=== PATIENT | male | born 1940 | race Caucasian/White ===

== ENCOUNTER 2016-07-29 09:52 | Outpatient (CLI) | payer MEDICARE | END 2016-07-29 09:53 | disposition home or self-care (01) | DX: E78.5 Hyperlipidemia, unspecified (principal); I10 Essential (primary) hypertension; H47.10 Unspecified papilledema; Q28.3 Other malformations of cerebral vessels ==

== ENCOUNTER 2016-07-29 10:48 | Outpatient (CLI) | payer MEDICARE | END 2016-07-29 10:49 | disposition home or self-care (01) | DX: G47.33 Obstructive sleep apnea (adult) (pediatric) (principal); E78.5 Hyperlipidemia, unspecified; Q28.3 Other malformations of cerebral vessels; H47.10 Unspecified papilledema; I10 Essential (primary) hypertension | CPT/HCPCS: 36415; 80053; 85025; 99214; G0463 ==

== ENCOUNTER 2017-05-16 08:50 | Outpatient (CLI) | payer MEDICARE ==
[2017-05-16 13:54] LABS: BASOPHILS % (AUTO) 0.6 %; EOSINOPHILS # (AUTO) 0.2 10^3/uL (0.0-0.7); EOSINOPHILS % (AUTO) 2.5 %; HGB - HEMOGLOBIN 16.6 g/dL (14.0-18.0); LYMPHOCYTES # (AUTO) 1.5 10^3/uL (1.5-3.5); LYMPHOCYTES % (AUTO) 22.9 %; MEAN CORPUSCULAR HEMOGLOBIN 29.7 pg (27.0-31.0); MEAN CORPUSCULAR HGB CONC 33.9 g/dL (32.0-36.0); MEAN CORPUSCULAR VOLUME 87.5 fL (80.0-94.0); MEAN PLATELET VOLUME 8.7 fL (7.4-11.4); MONOCYTES # (AUTO) 0.6 10^3/uL (0.0-1.0); NEUTROPHILS # (AUTO) 4.3 10^3/uL (1.5-6.6); RED CELL DISTRIBUTION WIDTH 13.4 % (12.0-15.0); UNCORRECTED WHITE BLOOD COUNT 6.7 x10^3/uL; WHITE BLOOD COUNT 6.7 x10^3/uL (4.8-10.8)
[2017-05-16 14:16] LABS: ALBUMIN/GLOBULIN RATIO 1.4 (1.0-2.2); BILIRUBIN,TOTAL 1.1 mg/dL (0.2-1.0); BUN - BLOOD UREA NITROGEN 24 mg/dL (6-20); CALCIUM 9.2 mg/dL (8.5-10.3); CARBON DIOXIDE - CO2 24 mmol/L (21-32); CHLORIDE 105 mmol/L (101-111); CHOL/HDL RATIO 2.8 (<5.0); CHOLESTEROL 181 mg/dL; CREATININE 1.4 mg/dL (0.6-1.2); GFR - MDRD 49 (>89); GLUCOSE 111 mg/dL (70-100); HDL CHOLESTEROL 65 mg/dL; LDL/HDL RATIO 1.6 (<3.6); POTASSIUM 4.4 mmol/L (3.5-5.0); SODIUM 136 mmol/L (135-145); TOTAL PROTEIN 7.1 g/dL (6.7-8.2); TRIGLYCERIDES 70 mg/dL; VLDL CHOLESTEROL 14 mg/dL
== END 2017-05-16 08:51 | disposition home or self-care (01) ==
LOC: LAB.WCP 08:50
PROVIDERS: ATTEND Family Medicine
DX: E78.5 Hyperlipidemia, unspecified (principal); I10 Essential (primary) hypertension
CPT/HCPCS: 36415; 80053; 80061; 84443; 85025

== ENCOUNTER 2017-07-08 14:05 | Outpatient (CLI) | payer MEDICARE, BC ==
[2017-07-08 19:09] LABS: CREATININE 1.3 mg/dL (0.6-1.2)
[2017-07-08 20:38] LABS: PT - PROTHROMBIN TIME 11.2 secs (9.9-12.6)
== END 2017-07-08 14:06 | disposition home or self-care (01) ==
LOC: LAB.WCP 14:05
PROVIDERS: ATTEND Family Medicine
DX: Q28.2 Arteriovenous malformation of cerebral vessels (principal); I45.10 Unspecified right bundle-branch block
CPT/HCPCS: 36415; 82565; 84520; 85610; 85730

== ENCOUNTER 2017-12-27 13:41 | Outpatient (CLI) | payer MEDICARE, BC | END 2017-12-27 13:42 | disposition home or self-care (01) | LOC: SC 13:41 | PROVIDERS: ATTEND Nurse Practitioner Family | DX: G47.33 Obstructive sleep apnea (adult) (pediatric) (principal) | CPT/HCPCS: 99214; G0463; 99212 ==

== ENCOUNTER 2018-09-15 08:00 | Outpatient (CLI) | payer MEDICARE, BC | END 2018-09-15 23:59 | disposition home or self-care (01) | LOC: LAB.WCP 08:00 | PROVIDERS: ATTEND Family Medicine | DX: I82.90 Acute embolism and thrombosis of unspecified vein (principal) | CPT/HCPCS: 81025 ==

== ENCOUNTER 2018-09-29 08:00 | Outpatient (CLI) | payer MEDICARE, BC | END 2018-09-29 23:59 | disposition home or self-care (01) | LOC: LAB.WCP 08:00 | PROVIDERS: ATTEND Family Medicine | DX: I82.90 Acute embolism and thrombosis of unspecified vein (principal); Z79.01 Long term (current) use of anticoagulants | CPT/HCPCS: 81025 ==

== ENCOUNTER 2018-10-06 08:00 | Outpatient (CLI) | payer MEDICARE, BC | END 2018-10-06 23:59 | disposition home or self-care (01) | LOC: LAB.WCP 08:00 | PROVIDERS: ATTEND Family Medicine | DX: I82.409 Acute embolism and thrombosis of unspecified deep veins of unspecified lower extremity (principal); Z79.01 Long term (current) use of anticoagulants ==

== ENCOUNTER 2018-10-17 15:45 | Outpatient (CLI) | payer MEDICARE, BC | END 2018-10-17 15:46 | disposition home or self-care (01) | LOC: SC 15:45 | PROVIDERS: ATTEND Nurse Practitioner Family | DX: G47.33 Obstructive sleep apnea (adult) (pediatric) (principal); R53.83 Other fatigue | CPT/HCPCS: 99214; G0463; 99212 ==

== ENCOUNTER 2018-11-03 15:21 | Outpatient (CLI) | payer MEDICARE, BC ==
--- NOTE | 2018-11-04 16:11 | XRAY Report ---
Reason: DEGENERATIVE JOINT DISEASE,LUMBAR SPINE Procedure Date: 11/03/2018 Accession Number: [id number] / [id number] Procedure: WCP - Lumbar Spine 2 View CPT Code: FULL RESULT: EXAM: LUMBOSACRAL SPINE RADIOGRAPHY EXAM DATE: 11/03/2018 03:16 PM. CLINICAL HISTORY: Degenerative joint disease, lumbar spine. COMPARISONS: None. TECHNIQUE: 3 views. FINDINGS: Alignment: Normal. No spondylolisthesis or scoliosis. Bones: Five [id number] lumbar vertebral bodies are present. No acute fracture appreciated. There is remote-appearing anterior wedging at the superior endplate compression of the L2 vertebral body with loss of 25% of the bone height. Disks: Mild degenerative disk space narrowing with anterior osteophyte at L2-L3. Facets: No degenerative changes. Sacroiliac Joints: Unremarkable. Soft Tissues: Normal. The visualized bowel gas pattern is normal. IMPRESSION: Remote-appearing anterior wedging compression at the superior endplate of L2 as described mild degenerative disk changes. No acute fracture appreciated. RADIA
== END 2018-11-03 15:22 | disposition home or self-care (01) ==
LOC: DI.WCP 15:21
PROVIDERS: ATTEND Family Medicine
DX: M51.36 Other intervertebral disc degeneration, lumbar region (principal); M48.56XS Collapsed vertebra, not elsewhere classified, lumbar region, sequela of fracture; I82.90 Acute embolism and thrombosis of unspecified vein; Z79.01 Long term (current) use of anticoagulants
CPT/HCPCS: 72100

== ENCOUNTER 2018-11-14 08:00 | Outpatient (CLI) | payer MEDICARE, BC | END 2018-11-14 23:59 | disposition home or self-care (01) | LOC: LAB.WCP 08:00 | PROVIDERS: ATTEND Family Medicine | DX: I82.409 Acute embolism and thrombosis of unspecified deep veins of unspecified lower extremity (principal); M47.9 Spondylosis, unspecified ==

== ENCOUNTER 2018-11-22 11:14 | Outpatient (CLI) | payer MEDICARE, BC | END 2018-11-22 11:15 | disposition home or self-care (01) | LOC: SC 11:14 | PROVIDERS: ATTEND Nurse Practitioner Family | DX: G47.33 Obstructive sleep apnea (adult) (pediatric) (principal) | CPT/HCPCS: 99214; G0463; 99212 ==

== ENCOUNTER 2018-12-12 08:00 | Outpatient (CLI) | payer MEDICARE, BC | END 2018-12-12 23:59 | disposition home or self-care (01) | LOC: LAB.WCP 08:00 | PROVIDERS: ATTEND Family Medicine | DX: I82.409 Acute embolism and thrombosis of unspecified deep veins of unspecified lower extremity (principal); Z79.01 Long term (current) use of anticoagulants ==

== ENCOUNTER 2019-01-15 10:42 | Outpatient (CLI) | payer MEDICARE, BC | END 2019-01-15 10:43 | disposition home or self-care (01) | LOC: SC 10:42 | PROVIDERS: ATTEND Nurse Practitioner Family | DX: G47.33 Obstructive sleep apnea (adult) (pediatric) (principal) | CPT/HCPCS: 99214; G0463; 99212 ==

== ENCOUNTER 2019-02-06 08:00 | Outpatient (CLI) | payer MEDICARE, BC | END 2019-02-06 23:59 | disposition home or self-care (01) | LOC: LAB.WCP 08:00 | PROVIDERS: ATTEND Family Medicine | DX: I82.90 Acute embolism and thrombosis of unspecified vein (principal); Z79.01 Long term (current) use of anticoagulants ==

== ENCOUNTER 2019-02-20 08:00 | Outpatient (CLI) | payer MEDICARE, BC | END 2019-02-20 23:59 | disposition home or self-care (01) | LOC: LAB.WCP 08:00 | PROVIDERS: ATTEND Family Medicine | DX: I82.90 Acute embolism and thrombosis of unspecified vein (principal); Z79.01 Long term (current) use of anticoagulants ==

== ENCOUNTER 2019-03-06 08:00 | Outpatient (CLI) | payer MEDICARE, BC | END 2019-03-06 23:59 | disposition home or self-care (01) | LOC: LAB.WCP 08:00 | PROVIDERS: ATTEND Family Medicine | DX: I82.409 Acute embolism and thrombosis of unspecified deep veins of unspecified lower extremity (principal); Z79.01 Long term (current) use of anticoagulants ==

== ENCOUNTER 2019-03-19 08:00 | Outpatient (CLI) | payer MEDICARE, BC | END 2019-03-19 23:59 | disposition home or self-care (01) | LOC: LAB.WCP 08:00 | PROVIDERS: ATTEND Physician Assistant Medical | DX: I82.409 Acute embolism and thrombosis of unspecified deep veins of unspecified lower extremity (principal); Z79.01 Long term (current) use of anticoagulants ==

== ENCOUNTER 2019-04-02 08:00 | Outpatient (CLI) | payer MEDICARE, BC | END 2019-04-02 23:59 | disposition home or self-care (01) | LOC: LAB.WCP 08:00 | PROVIDERS: ATTEND Physician Assistant Medical | DX: I82.409 Acute embolism and thrombosis of unspecified deep veins of unspecified lower extremity (principal); Z79.01 Long term (current) use of anticoagulants ==

== ENCOUNTER 2019-04-16 08:00 | Outpatient (CLI) | payer MEDICARE, BC | END 2019-04-16 23:59 | disposition home or self-care (01) | LOC: LAB.WCP 08:00 | PROVIDERS: ATTEND Family Medicine | DX: I82.409 Acute embolism and thrombosis of unspecified deep veins of unspecified lower extremity (principal); Z79.01 Long term (current) use of anticoagulants ==

== ENCOUNTER 2019-04-18 08:00 | Outpatient (CLI) | payer MEDICARE, BC | END 2019-04-18 23:59 | disposition home or self-care (01) | LOC: LAB.WCP 08:00 | PROVIDERS: ATTEND Family Medicine | DX: Z79.01 Long term (current) use of anticoagulants (principal); I82.90 Acute embolism and thrombosis of unspecified vein ==

== ENCOUNTER 2019-04-18 10:17 | Outpatient (CLI) | payer MEDICARE, BC ==
[2019-04-18 11:01] VITALS: BP 112/70
--- NOTE | 2019-04-18 11:01 | SLEEP CARE CONSULTATION ---
Information from patient questionnaire entered by Mahogany Velasco. I have reviewed and concur with the information entered by Mahogany Velasco. This document represents the service I personally performed and the decisions made by me, Cande Phillips, RN, MSN, CHIEF OF PLANNING. History of Present Illness Previous diagnosis: Very Severe, Obstructive Sleep Apnea-Hypopnea Syndrome AHI: 87.7 Reason for CPAP/BiPAP follow up: first compliance after device update Equipment type: CPAP Equipment obtained from: [employer] (pleased with set up group presentation) Mask style: Full face Backup mask available: Yes Last cushion change: a month ago CPAP Compliance Data - Data Reviewed with Patient Average duration of nightly device use: 8.4 Compliance rate %: 96.7 Current pressure setting (cmH2O): 10-13 Humidity settin Heated hose settin Average residual AHI: 1.9 Average large leak: 1 min 50 sec Subjective Patient concerns: reports: mask leak noise (3 times a night ), dry mouth, nose, throat, epistaxis (rare). denies: aerophagia, mask discomfort, air blowing in eyes, condensation in mask/hose, nasal congestion Observed to snore while using device: Yes (intermittent) Current pressure setting perceived as: comfortable On therapy, patient: reports: sleeping better, awakening more refreshed, being more awake and alert during the day, more rested overall. denies: drowsiness while driving Initial [place] Sleepiness Scale score: 9 Current [place] Sleepiness Scale score: 12 Allergies and Home Medications Known drug allergies: No Home medication list reviewed: Yes (no changes) Allergy and home medication list: Lipitor 10mg tab one daily Enalapril Maleate 5mg tab one twice daily Proscar (Finasteride) 5mg tab one daily Diomax 750 mg tab one daily Warfarin 5-7.5mg as directed Potassium Gluconate 595 (99 K) tab one daily Multivitamins Tab one daily Vitamin D 400unit cap one daily Miralax As needed Citrucel As needed Stool Softener As needed Senna As needed Review of Systems Review of systems same as previous: No (Finally able to proceed with thyroid biopsy) Physical Exam Blood Pressure: 112/70 Cuff size: long Heart Rate: 50 O2 Saturation: 97 Height: 5 ft 10.25 in Weight: 218 lb 3.2 oz Weight change since last visit: gained 6 pounds Body Mass Index: 31.1 BMI Classification: Obesity Class 1 Impression and Plan 1. Obstructive Sleep Apnea-Hypopnea Syndrome, very severe, with good treatment compliance and good apnea control. On CPAP therapy, the patient has better sleep quality and is more rested overall. To reduce occurrence of occasional oral dryness and rare epitaxis, I showed patient how to adjust humidity / heated hose on sample device. Printed instructions given downloaded from [employer] site. To reduce mask leaks and sleep fragmentation, he is again encouraged to consider the CPAP pillow and again showed the sample and discussed how to obtain this or other style on line. Patient's apnea severity and rationale for treatment to reduce apnea, improve sleep quality and reduce cardiovascular and cerebrovascular events was reviewed. I also reviewed the benefit of consistent device use of CPAP for hypertension * * Change CPAP pressure to 11-13 cmH2O * Adjust humidity * Try CPAP pillow * Notify me if snoring with mask or feeling that the pressure is too much or too little * Attempt to lose weight as changed BMI to 31 * Return for follow up in 1 year , or sooner if concerns arise . I spent 100% of this 30 minute visit face to face with the patient with greater than 50% of this was spent time counseling the patient and coordination of care about his apnea and treatment. Extra time taken due to hearing deficit.
== END 2019-04-18 10:18 | disposition home or self-care (01) ==
LOC: SC 10:17
PROVIDERS: ATTEND Nurse Practitioner Family
DX: G47.33 Obstructive sleep apnea (adult) (pediatric) (principal); E66.9 Obesity, unspecified; Z68.31 Body mass index [BMI] 31.0-31.9, adult; I82.90 Acute embolism and thrombosis of unspecified vein; Z79.01 Long term (current) use of anticoagulants
CPT/HCPCS: 85610; 99214; G0463; 99212

== ENCOUNTER 2019-04-26 08:00 | Outpatient (CLI) | payer MEDICARE, BC | END 2019-04-26 23:59 | disposition home or self-care (01) | LOC: LAB.WCP 08:00 | PROVIDERS: ATTEND Family Medicine | DX: Z79.01 Long term (current) use of anticoagulants (principal); I82.409 Acute embolism and thrombosis of unspecified deep veins of unspecified lower extremity ==

== ENCOUNTER 2019-05-03 08:00 | Outpatient (CLI) | payer MEDICARE, BC | END 2019-05-03 23:59 | disposition home or self-care (01) | LOC: LAB.WCP 08:00 | PROVIDERS: ATTEND Family Medicine | DX: Z79.01 Long term (current) use of anticoagulants (principal); I82.409 Acute embolism and thrombosis of unspecified deep veins of unspecified lower extremity ==

== ENCOUNTER 2019-05-17 08:00 | Outpatient (CLI) | payer MEDICARE, BC | END 2019-05-17 23:59 | disposition home or self-care (01) | LOC: LAB.WCP 08:00 | PROVIDERS: ATTEND Family Medicine | DX: Z79.01 Long term (current) use of anticoagulants (principal); I82.409 Acute embolism and thrombosis of unspecified deep veins of unspecified lower extremity ==

== ENCOUNTER 2020-04-09 15:00 | Outpatient (CLI) | payer MEDICARE, BC ==
[2020-04-09 15:45] VITALS: BP 120/80
--- NOTE | 2020-04-09 15:45 | SLEEP CARE CONSULTATION ---
Information from patient questionnaire entered by Kevin Mcclain. I have reviewed and concur with the information entered by Kevin Mcclain. This document represents the service I personally performed and the decisions made by me, Cande Phillips, RN, MSN, UTILITY ACCOUNTS DIRECTOR. History of Present Illness Service Date and Time: 04/09/2020 1500 Previous diagnosis: Very Severe, Obstructive Sleep Apnea-Hypopnea Syndrome AHI: 87.7 Reason for follow up: annual (Last seen 03/2019) Accompanied by: Spouse Equipment type: CPAP Equipment obtained from: [place] Mask style: Full face Backup mask available: Yes Last cushion change: 2 weeks ago [facility] Type of Sleep Study: Polysomnography CPAP Compliance Data - Data Reviewed with Patient Average duration of nightly device use: 7 h 58 min Compliance rate %: 98.9 Current pressure setting (cmH2O): 11-13 Humidity settin Heated hose settin Average residual AHI: 1.6 Average large leak: 1 min Subjective Patient concerns: reports: mask leak noise (intermittently - much better than previous mask- adjusts mask and resolves), other (feels more tired after meals and in afternoon the last few months and napping now after lunch). denies: aerophagia, mask discomfort, air blowing in eyes, condensation in mask/hose, nasal congestion, dry mouth, nose, throat, epistaxis Observed to snore while using device: No Current pressure setting perceived as: comfortable On therapy, patient: reports: sleeping better, awakening more refreshed, being more awake and alert during the day, more rested overall, other (Left knee the last couple of months - seen by PCP and referral to ortho with appointment the . ). denies: drowsiness while driving Initial [place] Sleepiness Scale score: 11 (in 2009) Current [place] Sleepiness Scale score: 11 Allergies and Home Medications Known drug allergies: No Home medication list reviewed: No (Stopped warafin, miralex and citracel. Diomax dose reduced. ) Review of Systems Review of systems same as previous: No (Recent stress test and holter monitor to evaluate patients heart flutter ) Physical Exam Blood Pressure: 120/80 Cuff size: long Heart Rate: 64 O2 Saturation: 98 Height: 5 ft 10.25 in Weight: 231 lb 3.2 oz Body Mass Index: 32.9 BMI Classification: Obese Impression and Plan 1. Obstructive Sleep Apnea-Hypopnea Syndrome, very severe, with good treatment compliance and good apnea control. On CPAP therapy, the patient has better sleep quality and is more rested overall. HOwever, he has had increased fatigue es pecially after lunch and in afternoon and has started napping. He and spouse wonder if related to pain from his knee that may be disrupting sleep. Patient advised to follow up with PCP for further evaluation, as it could also be from elevated blood sugar if after meals. Patient has gained weight. Currently patients BMI is 31.1 obesity class . Obesity increases the risk of apnea, CPAP pressure requirements and overall health risks especially cardiovascular and diabetes. Thus patient is advised to continue to lose weight. Weight loss can be done with reducing portion size, reducing refined foods and balancing content with vegetables, fruit and protein. In addition tracking food intake will allow awareness of how to modify diet to achieve weight loss goals. Also eating more slowly will allow more awareness of food intake and enjoyment of food while assisting patient to modify intake at each meal. A diet consultation can be helpful in achieving optimal weight loss goals. The BMI chart was reviewed. The patient would like to reduce to 30 pounds bringing their BMI down to about 29. Patient encouraged to discuss their weight loss goals with their PCP and consider a referral to a arabic professor. The patient's CPAP pressure range should accommodate some weight loss. Symptoms to report for additional pressure adjustment discussed. Patient's apnea severity and rationale for treatment to reduce apnea, improve sleep quality and reduce cardiovascular and cerebrovascular events was reviewed. I also reviewed the benefit of consistent device use of CPAP for hypertension. Extra time taken due to patient hearing deficit. * Continue auto CPAP pressure at 11-13 cmH2O * Notify me if snoring with mask or feeling that the pressure is too much or too little * Attempt to lose weight * Follow up with PCP for a arabic professor referral * If continued fatigue after meals - follow up with PCP to check blood sugar. * Call this office if any problems using CPAP * Return for follow up in 1 year , or sooner if concerns arise Visit Type: In Office Time Spent with Patient (minutes): 35 Provider Statement: I spent 100% of the Face to Face Visit with the patient with greater than 50% spent counseling the patient and coordination of care.
== END 2020-04-09 15:01 | disposition home or self-care (01) ==
LOC: SC 15:00
PROVIDERS: ATTEND Nurse Practitioner Family
DX: G47.33 Obstructive sleep apnea (adult) (pediatric) (principal); E66.9 Obesity, unspecified; Z68.32 Body mass index [BMI] 32.0-32.9, adult
CPT/HCPCS: 99214; G0463; 99212

== ENCOUNTER 2021-05-12 10:05 | Outpatient (CLI) | payer MEDICARE, BC ==
--- NOTE | 2021-05-12 10:49 | SLEEP CARE CONSULTATION ---
Information from patient questionnaire entered by Rich Nichols MA. I have reviewed and concur with the information entered by Rich Nichols MA. This document represents the service I personally performed and the decisions made by , Jeannie Boston ARNP. History of Present Illness Service Date and Time: 05/12/2021 1005 Previous diagnosis: Very Severe, Obstructive Sleep Apnea-Hypopnea Syndrome AHI: 87.7 Reason for follow up: annual (last seen 2019) Equipment type: CPAP Equipment obtained from: [place] Mask style: Full face Backup mask available: Yes (other mask) Year and Where: 2010 [employer] Type of Sleep Study: Polysomnography HPI additional information: BENITO GREEN was diagnosed to have very severe, AHI 87.7, obstructive sleep apnea-hypopnea syndrome and returned today with partner for CPAP therapy annual follow-up. Sleep Study - Results Type of Sleep Study: Polysomnography Year and Where: 2010 [employer] CPAP Compliance Data - Data Reviewed with Patient Average duration of nightly device use: 7 hours 58 minutes Compliance rate %: 82.8 Current pressure setting (cmH2O): 11-13 Average residual AHI: 2.3 Central apnea: 0.2 Obstructive apnea: 1.0 Average large leak: 37 minutes Subjective Patient concerns: reports: dry mouth, nose, throat (occasionally). denies: aerophagia, mask discomfort, air blowing in eyes, mask leak noise, condensation in mask/hose, nasal congestion, epistaxis, other Observed to snore while using device: No Current pressure setting perceived as: comfortable On therapy, patient: reports: sleeping better, awakening more refreshed, being more awake and alert during the day, more rested overall. denies: drowsiness while driving Initial [place] Sleepiness Scale score: 11 (in 2009) Current [place] Sleepiness Scale score: 12 (2020) Allergies and Home Medications Home medication list reviewed: Yes (Lipitor increased to 40 mg ) Review of Systems Review of systems same as previous: Yes (no changes) Physical Exam Vital signs obtained and entered by: CHARLY Anderson Blood Pressure: 124/68 Cuff size: wrist Heart Rate: 77 O2 Saturation: 97 Height: 5 ft 10.25 in Weight: 228 lb Body Mass Index: 32.5 BMI Classification: Obese Impression and Plan 1. Obstructive Sleep Apnea-Hypopnea Syndrome, very severe, with good treatment compliance and good apnea control. On CPAP therapy, the patient has better sleep quality and is more rested overall. Patient is aware of the recall on his device and is waiting to hear back from them. Patient thinks that he has already registered their device for the recall. Patient denies any black particles seen in machine or hoses, any unusual odors coming from device. Patient has not experienced any physical symptoms such as upper airway irritation, headache, skin or eye irritation, asthma, nausea/vomiting, difficulty breathing or chest pain. If patient is not able to sleep due to waking up choking, gasping for air or other respiratory distress that they may decide to continue using it until it is either replaced or repaired. Patient voiced understanding and agreement with plan. Patient's apnea severity and rationale for treatment to reduce apnea, improve sleep quality and reduce cardiovascular and cerebrovascular events was reviewed. I also reviewed the benefit of consistent device use of CPAP for hypertension. Patient was encouraged to lose weight for their overall health and to reduce apneas. * Continue auto CPAP pressure at 11-13 cmH2O * Notify me if snoring with mask or feeling that the pressure is too much or too little * Attempt to lose weight * Call this office if any problems using CPAP * Return for follow up in 1 year, or sooner if concerns arise Counseling Topics: Spare mask, Weight loss health impact Visit Type: In Office Time Spent with Patient (minutes): 25 Provider Statement: I spent 100% of the Face to Face Visit with the patient with greater than 50% spent counseling the patient and coordination of care.
[2021-05-12 10:50] VITALS: BP 124/68
== END 2021-05-12 10:06 | disposition home or self-care (01) ==
LOC: SC 10:05
PROVIDERS: ATTEND Nurse Practitioner Family
DX: G47.33 Obstructive sleep apnea (adult) (pediatric) (principal); E66.9 Obesity, unspecified; Z68.32 Body mass index [BMI] 32.0-32.9, adult
CPT/HCPCS: 99213; G0463; 99212

== ENCOUNTER 2022-11-10 10:49 | Outpatient (CLI) | payer MEDICARE, BC ==
--- NOTE | 2022-11-10 11:07 | Sleep Patient Instructions ---
Sleep Center Visit Summary - Patient Visit Information Reason for Visit: Annual visit for CPAP therapy - Patient Instructions Additional Instructions: You will continue with CPAP therapy with pressure set at 11-13 cmH2O. A supply prescription will be updated with your DME. We encourage you to continue to try to lose weight. Please follow up with the sleep care office in 1 year. - Clinic Information Contact: [facility] [address] [place] [address] [email or web address] T: [phone]
[2022-11-10 11:36] VITALS: BP 132/76
--- NOTE | 2022-11-10 11:36 | SLEEP CARE CONSULTATION ---
Information from patient questionnaire entered by Manisha Toledo. I have reviewed and concur with the information entered by Manisha Toledo. This document represents the service I personally performed and the decisions made by me, Jeannie Boston ARNP. History of Present Illness Service Date and Time: 11/10/2022 1049 Previous diagnosis: Very Severe, Obstructive Sleep Apnea-Hypopnea Syndrome AHI: 87.7 Reason for follow up: annual (LAST SEEN 04/2021) Accompanied by: Spouse (Kaylee) Equipment type: CPAP (Dreamstation recertified) Equipment obtained from: [employer] (getting supplies as needed) Mask style: Full face Mask brand: [employer] (AirFit F20) Backup mask available: Yes (old mask) Last cushion change: 2 weeks Year and Where: 2010 [employer] Type of Sleep Study: Polysomnography HPI additional information: BENITO GREEN was diagnosed to have very severe, AHI 87.7, obstructive sleep apnea-hypopnea syndrome and returned today for CPAP therapy annual follow-up. Sleep Study - Results Type of Sleep Study: Polysomnography Year and Where: 2010 [employer] CPAP Compliance Data - Data Reviewed with Patient Average duration of nightly device use: 8 HRS 57 MIN 51 SEC Compliance rate %: 98.3 (05/13/22-11/08/22; 179/180 days used) Current pressure setting (cmH2O): 11-13 Average residual AHI: 2.9 Central apnea: 0.2 Obstructive apnea: 1.4 Hypopnea: 1.3 Average large leak: 55 secs Subjective Patient concerns: reports: mask leak noise, dry mouth, nose, throat (mouth coming open when he lays on his back). denies: aerophagia, mask discomfort, air blowing in eyes, condensation in mask/hose, nasal congestion, epistaxis Observed to snore while using device: No (occasionally when on his back) Current pressure setting perceived as: comfortable On therapy, patient: reports: sleeping better, awakening more refreshed, being more awake and alert during the day, more rested overall. denies: drowsiness while driving Initial [place] Sleepiness Scale score: 11 (in 2009) Current [place] Sleepiness Scale score: 7 (11/10/22) Allergies and Home Medications Known drug allergies: No Drug allergies reviewed: Yes Home medication list reviewed: Yes (Eliquis started in August) Review of Systems Review of systems same as previous: No (blood clot in left leg) Physical Exam Vital signs obtained and entered by: MANISHA Perera MA Blood Pressure: 132/76 (LEFT ARM) Cuff size: regular Heart Rate: 68 O2 Saturation: 96 Height: 5 ft 10.25 in Weight: 229 lb Body Mass Index: 32.6 BMI Classification: Obese Impression and Plan 1. Obstructive Sleep Apnea-Hypopnea Syndrome, very severe, with good treatment compliance and good apnea control. On CPAP therapy, the patient has better sleep quality and is more rested overall. Patient has significant improvement of their sleep apnea and is satisfied with current CPAP therapy. Patient has gotten a little bit more dry mouth with his water running in the last couple of months. He states it is not bad it happens mainly when he is lying flat on his back to sleep. Patient's apnea severity and rationale for treatment to reduce apnea, improve sleep quality and reduce cardiovascular and cerebrovascular events was reviewed. I also reviewed the benefit of consistent device use of CPAP for hypertension. 2. Obesity, unspecified. Currently patients BMI is 32.6. Obesity increases the risk of apnea, CPAP pressure requirements and overall health risks especially cardiovascular and diabetes. Thus patient is advised to lose weight. * Continue auto CPAP pressure at 11-13 cmH2O * Update supplies * Notify me if snoring with mask or feeling that the pressure is too much or too little * Attempt to lose weight * Call this office if any problems using CPAP * Return for follow up in 1 year, or sooner if concerns arise Counseling Topics: Spare mask, Weight loss health impact Visit Type: In Office Other Participants: Spouse/Significant Other Time Spent with Patient (minutes): 25 Provider Statement: I spent 100% of the Face to Face Visit with the patient with greater than 50% spent counseling the patient and coordination of care.
== END 2022-11-10 10:50 | disposition home or self-care (01) ==
LOC: SC 10:49
PROVIDERS: ATTEND Nurse Practitioner Family
DX: G47.33 Obstructive sleep apnea (adult) (pediatric) (principal); E66.9 Obesity, unspecified; Z68.32 Body mass index [BMI] 32.0-32.9, adult
CPT/HCPCS: 99213; G0463; 99212

== ENCOUNTER 2023-07-03 10:40 | Outpatient (CLI) | payer MEDICARE, BC | END 2023-07-03 23:59 | disposition short-term general hospital (02) | LOC: EMS 10:40 | DX: R20.0 Anesthesia of skin (principal); R53.1 Weakness; R29.810 Facial weakness; R47.81 Slurred speech; I10 Essential (primary) hypertension; Z79.01 Long term (current) use of anticoagulants | CPT/HCPCS: A0425; A0429 ==

== ENCOUNTER 2024-03-13 09:50 | Outpatient (CLI) | payer MEDICARE, BC ==
--- NOTE | 2024-03-13 10:27 | Sleep Patient Instructions ---
Sleep Center Visit Summary - Patient Visit Information Reason for Visit: Annual follow-up - Patient Instructions Additional Instructions: You will continue with CPAP therapy with pressure set at 11-13 cmH2O. A supply prescription will be updated with your DME supplier. We encourage you to continue to try to lose weight. Please follow up with the sleep care office in 1 year. - Clinic Information Contact: [facility] [address] [place] [address] [email or web address] T: [phone]
[2024-03-13 10:30] VITALS: BP 144/68; O2SAT 95
--- NOTE | 2024-03-13 10:30 | SLEEP CARE CONSULTATION ---
Information from patient questionnaire entered by Manisha Toledo. I have reviewed and concur with the information entered by Manisha Toledo. This document represents the service I personally performed and the decisions made by me, Jeannie Boston ARNP. History of Present Illness Service Date and Time: 03/13/2024 0950 Previous diagnosis: Very Severe, Obstructive Sleep Apnea-Hypopnea Syndrome AHI: 87.7 (2010) Reason for follow up: annual (LAST SEEN 10/2022) Accompanied by: Spouse (Kaylee) Equipment type: CPAP (Dreamstation recertified) Equipment obtained from: [employer] (getting supplies as needed) Mask style: Full face Mask brand: [employer]med (AirFit F20) Backup mask available: No Last cushion change: 3 weeks Year and Where: 2010 [employer] Type of Sleep Study: Polysomnography HPI additional information: BENITO GREEN was diagnosed to have very severe, AHI 87.7, obstructive sleep apnea-hypopnea syndrome and returned today for CPAP therapy annual follow-up. Sleep Study - Results Type of Sleep Study: Polysomnography Year and Where: 2010 [employer] CPAP Compliance Data - Data Reviewed with Patient Average duration of nightly device use: 8 HRS 24 MINS 25 SECS Compliance rate %: 90.4 (359/365 days used) Current pressure setting (cmH2O): 11-13 Average residual AHI: 2.4 Central apnea: 0.4 Obstructive apnea: 1.1 Hypopnea: 0.9 Average large leak: 30 mins 25 secs Subjective Missed days of use due to: reports: illness Patient concerns: denies: aerophagia, mask discomfort, air blowing in eyes, mask leak noise, condensation in mask/hose, nasal congestion, dry mouth, nose, throat, epistaxis Observed to snore while using device: No Current pressure setting perceived as: comfortable On therapy, patient: reports: sleeping better, awakening more refreshed, being more awake and alert during the day, more rested overall. denies: drowsiness while driving Initial [place] Sleepiness Scale score: 11 (in 2009) Current [place] Sleepiness Scale score: 10 (03/13/24) Allergies and Home Medications Known drug allergies: No Drug allergies reviewed: Yes Home medication list reviewed: Yes (no changes) Allergy and home medication list: Allergies No Known Drug Allergies Allergy (Verified 03/13/24 10:01) Review of Systems Review of systems same as previous: No (NO CHANGE) Physical Exam Vital signs obtained and entered by: MANISHA Perera MA Blood Pressure: 144/68 (RIGHT ARM) Cuff size: long Heart Rate: 50 O2 Saturation: 95 Height: 5 ft 10.25 in Weight: 236 lb 9.6 oz Body Mass Index: 33.7 BMI Classification: Obese Impression and Plan 1. Obstructive Sleep Apnea-Hypopnea Syndrome, very severe, with good treatment compliance and good apnea control. On CPAP therapy, the patient has better sleep quality and is more rested overall. He has significant improvement of his sleep apnea and is satisfied with current CPAP therapy. Patient's apnea severity and rationale for treatment to reduce apnea, improve sleep quality and reduce cardiovascular and cerebrovascular events was reviewed. I also reviewed the benefit of consistent device use of CPAP for hypertension. 2. Obesity, unspecified. Currently patients BMI is 33.7. Obesity increases the risk of apnea, CPAP pressure requirements and overall health risks especially cardiovascular and diabetes. Thus patient is advised to lose weight. * Continue auto CPAP pressure at 11-13 cmH2O * Update supply prescription * Notify me if snoring with mask or feeling that the pressure is too much or too little * Attempt to lose weight * Call this office if any problems using CPAP * Return for follow up in 12 months, or sooner if concerns arise Counseling Topics: Spare mask, Weight loss health impact Prescriptions: Device supplies Follow up with Sleep Care in: 1 year Visit Type: In Office Time Spent with Patient (minutes): 20 Provider Statement: I spent 100% of the Face to Face Visit with the patient with greater than 50% spent counseling the patient and coordination of care.
== END 2024-03-13 09:51 | disposition home or self-care (01) ==
LOC: SC 09:50
PROVIDERS: ATTEND Nurse Practitioner Family
DX: G47.33 Obstructive sleep apnea (adult) (pediatric) (principal); E66.9 Obesity, unspecified; Z68.33 Body mass index [BMI] 33.0-33.9, adult
CPT/HCPCS: 99213; G0463; 99212